=== PATIENT | female | born 1985 | race Caucasian/White ===

== ENCOUNTER → 2017-05-12 | Outpatient (CLI) | payer SELFPAY | END | disposition home or self-care (01) | LOC: LABWHC1 16:07 | PROVIDERS: ATTEND Internal Medicine | DX: E89.0 Postprocedural hypothyroidism (principal) | CPT/HCPCS: 36415; 84443 ==

== ENCOUNTER → 2017-07-22 | Outpatient (CLI) | payer OTHER ==
[2017-07-22 09:27] LABS: ALT 24 U/L (9-52); AST 15 U/L (14-36); Alkaline Phosphatase 45 U/L (38-126); Anion Gap 8 mmol/L; Blood Urea Nitrogen 14 mg/dL (7-17); Calcium 9.2 mg/dL (8.4-10.2); Carbon Dioxide 27 mmol/L (22-30); Chloride 106 mmol/L (98-107); Cholesterol 164 mg/dL (<200); Glucose 86 mg/dL (74-99); HDL Cholesterol 48 mg/dL (40-60); Non-African American GFR(MDRD) >60 (>60 ml/min/1.73 sqM); Potassium 4.2 mmol/L (3.5-5.1); Sodium 141 mmol/L (137-145); Total Bilirubin 0.3 mg/dL (0.2-1.3); Total Protein 6.5 g/dL (6.3-8.2)
== END | disposition home or self-care (01) ==
LOC: LABWHC1 08:41
PROVIDERS: ATTEND Pediatrics
DX: Z13.220 Encounter for screening for lipoid disorders (principal)
CPT/HCPCS: 36415; 80053; 80061

== ENCOUNTER → 2017-08-20 | Outpatient (CLI) | payer OTHER ==
[2017-08-20 09:49] LABS: Anion Gap 12 mmol/L; Blood Urea Nitrogen 7 mg/dL (7-17); Calcium 9.7 mg/dL (8.4-10.2); Carbon Dioxide 24 mmol/L (22-30); Chloride 105 mmol/L (98-107); Glucose 79 mg/dL (74-99); Non-African American GFR(MDRD) >60 (>60 ml/min/1.73 sqM); Potassium 4.3 mmol/L (3.5-5.1); Sodium 141 mmol/L (137-145)
== END | disposition home or self-care (01) ==
LOC: LABWHC1 07:38
PROVIDERS: ATTEND Internal Medicine
DX: E87.6 Hypokalemia (principal)
CPT/HCPCS: 36415; 80048

== ENCOUNTER → 2018-05-01 | Outpatient (CLI) | payer OTHER ==
--- NOTE | 2018-05-01 10:59 | CT ---
EXAMINATION TYPE: CT orbits w con DATE OF EXAM: 05/01/2018 COMPARISON: NONE HISTORY: 32-year-old female has with history of graves disease. Preoperative study. Unspecified acut e inflammation of the orbits. TECHNIQUE: Contiguous axial scanning of the orbits performed with IV Contrast, patient injected with 100 mL of Isovue 300. Coronal/sagittal reconstructions performed. 3-D reconstructions generated on a dedicated independent workstation. CT DLP: 303 mGycm Automated exposure control for dose reduction was used. FINDINGS: There is no abnormality of visualized intracranial structures. There is a old fracture of the medial left orbital wall measuring 2.2 cm AP and all blowout fracture of the left orbital floor measuring 9 mm wide and a bony gap along the lateral orbital wall, bilatera lly. There is some focal lateral pulling of the lateral rectus as it courses across the defect, refer to a xial image 28. On the left, the inferior rectus is thickened and extends along the orbital floor defect, refer to co siria image 25. The medial rectus is drawn into the medial blowout fracture defect and there is proba fabian some narrowing along the lateral aspect of the left orbit causing focal contour deformity to the lateral rectus, refer to axial image 25 and 26, respectively. Patient gaze is slightly divergent suggesting underlying strabismus. There is focal mucosal thickening along the lateral left maxillary sinus. No air-fluid levels. Slight leftward nasal septal deviation. Normal-appearing enhancement within the bilateral cavernous sinuses. IMPRESSION: 1. LEFT ORBITAL DEFORMITY. THE ORBIT APPEARS NARROWED FROM SIDE TO SIDE WITH THE MEDIAL RECTUS DRAWN INTO A DEFECT FORMED BY MEDIAL ORBITAL WALL BLOWOUT FRACTURE. ALSO, A PORTION OF THE SPHENOID BONE WH ICH FORMS THE LATERAL WALL IMPRESSES ON TO AND DEFORMS THE COURSE OF THE LATERAL RECTUS. THE INFERIOR RECTUS IS THICKENED AND DRAWN INTO THE DEFECT FORMED BY AN ORBITAL FLOOR BLOWOUT FRACTURE. ENTRAPMEN T NOT EXCLUDED. 2. RIGHT ORBITAL DEFORMITY WITH AN OSSEOUS DEFECT ALONG THE LATERAL WALL. THERE IS SOME PULLING OF TH E LATERAL RECTUS AT THE LEVEL OF THE DEFECT THAT COULD REPRESENT SCARRING AND ENTRAPMENT. 3. PATIENT'S GAZE IS SLIGHTLY DIVERGENT SUGGESTING UNDERLYING STRABISMUS. 4. MODERATE SOFT TISSUE THICKENING ALONG THE LEFT LATERAL MAXILLARY SINUS COULD REPRESENT SCARRING OR CHRONIC MUCOSAL THICKENING.
== END | disposition home or self-care (01) ==
LOC: RADCTMAIN 08:01
PROVIDERS: ATTEND Pathology Anatomic Pathology
DX: H05.30 Unspecified deformity of orbit (principal); S02.32XA Fracture of orbital floor, left side, initial encounter for closed fracture; M79.89 Other specified soft tissue disorders; E05.00 Thyrotoxicosis with diffuse goiter without thyrotoxic crisis or storm
CPT/HCPCS: 70481; Q9967

== ENCOUNTER 2024-08-07 12:40 | Emergency (ER) | payer OTHER ==
[2024-08-07 12:53] VITALS: TEMP 98.4
--- NOTE | 2024-08-07 13:40 | ED ---
General Adult HPI - General Source: patient, RN notes reviewed Mode of arrival: ambulatory Limitations: no limitations <Brenda Hammond - Last Filed: 08/07/24 13:38> <Mena Gutierrez - Last Filed: 08/07/24 16:56> - General Chief complaint: Recheck/Abnormal Lab/Rx Stated complaint: low blood pressure Time Seen by Provider: 08/07/24 13:30 - History of Present Illness Initial comments: Quick Note: This is a 39-year-old female who presents to the emergency department for weakness. Reports chills, body aches, nausea, and vomiting. States that in general she just feels sick and rundown. She went to urgent care and they were concerned about her being hypotensive and she was sent to the emergency department for evaluation. (Brenda Hammond) This is a 39-year-old female with past medical history of hypothyroidism on levothyroxine who presents emergency department for chief complaint of b odyaches, chills, nausea, vomiting, and diarrhea. States that she feels rundown and like she has COVID. States that symptoms started yesterday and she went to urgent care this morning where she tested negative for COVID and flu. She states that urgent care was concerned that her blood pressure was low and started to report to emergency department for further evaluation. Currently she is denying chest pain, shortness of breath, difficulty breathing, abdominal pain, headaches. States that since she has been here her symptoms are starting to improve. She is concerned that her thyroid levels may be off as she forgot to take her levothyroxine a few days last week. (Mena Gutierrez) - Related Data Home Medications Medication Instructions Recorded Confirmed Acetaminophen Tab [Tylenol Tab] 1,000 mg PO Q6HR PRN 08/07/24 08/07/24 Artificial Tears-Hypromellose 1 drop BOTH EYES QID PRN 08/07/24 08/07/24 [Artificial Tear Drops] Dextroamphetamine/Amphetamine 30 mg PO BID@0730,1100 08/07/24 08/07/24 [Adderall] Levothyroxine Sodium [Synthroid] 100 mcg PO DAILY 08/07/24 08/07/24 Allergies Allergy/AdvReac Type Severity Reaction Status Date / Time No Known Allergies Allergy Verified 08/07/24 16:09 Review of Systems ROS Other: All systems not noted in ROS Statement are negative. <Brenda Hammond - Last Filed: 08/07/24 13:38> ROS Other: All systems not noted in ROS Statement are negative. <Mena Gutierrez - Last Filed: 08/07/24 16:56> ROS Statement: Those systems with pertinent positive or pertinent negative responses have been documented in the HPI. Past Medical History Past Medical History: Thyroid Disorder History of Any Multi-Drug Resistant Organisms: None Reported Past Surgical History: Section Past Psychological History: ADD/ADHD Smoking Status: Current every day smoker Past Alcohol Use History: None Reported Past Drug Use History: None Reported <Brenda Hammond - Last Filed: 08/07/24 13:38> General Exam Limitations: no limitations <Brenda Hammond - Last Filed: 08/07/24 13:38> General appearance: alert, in no apparent distress Eye exam: Present: normal appearance, PERRL, EOMI. Absent: scleral icterus, conjunctival injection, periorbital swelling ENT exam: Present: normal exam, mucous membranes moist Neck exam: Present: normal inspection. Absent: tenderness, meningismus, lymphadenopathy Cardiovascular Exam: Present: regular rate, normal rhythm, normal heart sounds. Absent: systolic murmur, diastolic murmur, rubs, gallop, clicks GI/Abdominal exam: Present: soft, normal bowel sounds. Absent: distended, tend erness, guarding, rebound, rigid Extremities exam: Present: normal inspection, full ROM, normal capillary refill. Absent: tenderness, pedal edema, joint swelling, calf tenderness Back exam: Present: normal inspection Skin exam: Present: warm, dry, intact, normal color. Absent: rash <Mena Gutierrez - Last Filed: 08/07/24 16:56> - General Exam Comments Initial Comments: Visual Physical Exam Vital signs reviewed General: Well-appearing, nontoxic, no acute distress. Head: Normocephalic, atraumatic Eyes: PERRLA, EOMI ENT: Airway patent Chest: Nonlabored breathing Skin: No visual rash, normal skin tone Neuro: Alert and oriented 3 Musculoskeletal: No gross abnormalities (Brenda Hammond) Course Vital Signs 08/07/24 08/07/24 12:49 16:42 Temperature 98.4 F Pulse Rate 105 H 96 Respiratory 18 18 Rate Blood Pressure 131/84 131/96 O2 Sat by Pulse 99 98 Oximetry Medical Decision Making <Brenda Hammond - Last Filed: 08/07/24 13:38> - Lab Data Result diagrams: 08/07/24 14:24 08/07/24 14:24 <Mena Gutierrez - Last Filed: 08/07/24 16:56> - Medical Decision Making I performed the QuickNote portion of this chart. Signed Brenda Hammond PA-C. (Brenda Hammond) Was pt. sent in by a medical professional or institution (, PA, COMPRESSOR STATION OPERATOR, urgent care, hospital, or residential...) When possible be specific @ -Patient was advised by urgent care to report to the emergency department for further evaluation of of fevers, chills, hypotension. Did you speak to anyone other than the patient for history (EMS, parent, family, police, friend...)? What history was obtained from this source @ -No Did you review nursing and triage notes (agree or disagree)? Why? @ -I reviewed and agree with nursing and triage notes Were old charts reviewed (outside hosp., previous admission, EMS record, old EKG, old radiological studies, urgent care reports/EKG's, residential records)? Report findings @ -No old charts were reviewed Differential Diagnosis (chest pain, altered mental status, abdominal pain women, abdominal pain men, vaginal bleeding, weakness, fever, dyspnea, syncope, headache, dizziness, GI bleed, back pain, seizure, CVA, palpatations, mental health, musculoskeletal)? @ -COVID 19, RSV, influenza, pneumonia, acute bronchitis, URI, this list is not all inclusive EKG interpreted by me (3pts min.). @ -Not obtained X-rays interpreted by me (1pt min.). @ -None done CT interpreted by me (1pt min.). @ -None done U/S interpreted by me (1pt. min.). @ -None done What testing was considered but not performed or refused? (CT, X-rays, U/S, labs)? Why? @ -None What meds were considered but not given or refused? Why? @ -None Did you discuss the management of the patient with other professionals (professionals i.e. , PA, COMPRESSOR STATION OPERATOR, lab, RT, psych nurse, administrator social welfare, traffic recorder, teacher, fire prevention officer, watch case polisher)? Give summary @ -No Was smoking cessation discussed for >3mins.? @ -No Was critical care preformed (if so, how long)? @ -No Were there social determinants of health that impacted care today? How? (H omelessness, low income, unemployed, alcoholism, drug addiction, transportation, low edu. Level, literacy, decrease access to med. care, penitentiary, rehab)? @ -No Was there de-escalation of care discussed even if they declined (Discuss DNR or withdrawal of care, Hospice)? DNR status @ -No What co-morbidities impacted this encounter? (DM, HTN, Smoking, COPD, CAD, Cancer, CVA, ARF, Chemo, Hep., AIDS, mental health diagnosis, sleep apnea, morbid obesity)? @ -None Was patient admitted / discharged? Hospital course, mention meds given and route, prescriptions, significant lab abnormalities, going to OR and other pertinent info. @ -Discharge. 39-year-old female with nausea, vomiting, diarrhea, congestion. Patient was advised to report to emergency department from urgent care for further evaluation as she tested negative for COVID and flu. Patient was evaluated in the emergency department as a quick note. On my evaluation of the patient she is resting comfortably no signs of acute distress. Patient does have clinical signs of nasal congestion. Results are grossly unremarkable. Arlen ent's TSH is mildly elevated at 4.760, free T4 1.01. Patient states that she has been feeling much better since being the emergency department and request that she be discharged to this time. There are no acute findings on labs and testing and patient is stable for discharge at including that her vitals are stable and she has not had any episodes of hypotension will be in the emergency department. All questions answered at bedside strict return parameters devroa the patient she is verbalized understanding. Case discussed with Dr. Bernal Undiagnosed new problem with uncertain prognosis? @ -No Drug Therapy requiring intensive monitoring for toxicity (Heparin, Nitro, Insulin, Cardizem)? @ -No Were any procedures done? @ -No Diagnosis/symptom? @ -hypothyroidism, viral URI Acute, or Chronic, or Acute on Chronic? @ -Acute Uncomplicated (without systemic symptoms) or Complicated (systemic symptoms)? @ -uncomplicated Side effects of treatment? @ -No Exacerbation, Progression, or Severe Exacerbation? @ -No Poses a threat to life or bodily function? How? (Chest pain, [place], [place], pneumonia, PE, COPD, DKA, ARF, appy, cholecystitis, CVA, Diverticulitis, Homicidal, Suicidal, threat to staff... and all critical care pts) @ -No (Mena Gutierrez) - Lab Data Lab Results 08/07/24 08/07/24 08/07/24 Range/Units 13:15 14:24 14:24 WBC 7.3 (3.8-10.6) k/uL RBC 4.76 (3.80-5.40) m/uL Hgb 14.6 (11.4-16.0) gm/dL Hct 43.4 (34.0-46.0) % MCV 91.1 (80.0-100.0) fL MCH 30.7 (25.0-35.0) pg MCHC 33.8 (31.0-37.0) g/dL RDW 12.5 (11.5-15.5) % Plt Count 322 (150-450) k/uL MPV 6.9 Neutrophils % 67 % Lymphocytes % 24 % Monocytes % 6 % Eosinophils % 0 % Basophils % 1 % Neutrophils # 4.9 (1.3-7.7) k/uL Lymphocytes # 1.7 (1.0-4.8) k/uL Monocytes # 0.4 (0-1.0) k/uL Eosinophils # 0.0 (0-0.7) k/uL Basophils # 0.1 (0-0.2) k/uL Sodium 139 (137-145) mmol/L Potassium 4.3 (3.5-5.1) mmol/L Chloride 106 (98-107) mmol/L Carbon Dioxide 27 (22-30) mmol/L Anion Gap 6 mmol/L BUN 16 (7-17) mg/dL Creatinine 0.87 (0.52-1.04) mg/dL Est GFR (CKD-EPI)AfAm >90 (>60 ml/min/1.73 sqM) Est GFR (CKD-EPI)NonAf 83 (>60 ml/min/1.73 sqM) Glucose 105 H (74-99) mg/dL Calcium 9.9 (8.4-10.2) mg/dL Total Bilirubin 0.6 (0.2-1.3) mg/dL AST 23 (14-36) U/L ALT 19 (4-34) U/L Alkaline Phosphatase 48 (38-126) U/L Total Protein 7.0 (6.3-8.2) g/dL Albumin 4.5 (3.5-5.0) g/dL Lipase 60 (23-300) U/L TSH 4.760 H (0.465-4.680) mIU/L Free T4 1.01 (0.78-2.19) ng/dL Influenza Type A (PCR) Not Detected (Not Detectd) Influenza Type B (PCR) Not Detected (Not Detectd) RSV (PCR) Not Detected (Not Detectd) SARS-CoV-2 (PCR) Not Detected (Not Detectd) Disposition <Brenda Hammond - Last Filed: 08/07/24 13:38> Is patient prescribed a controlled substance at d/c from ED?: No Time of Disposition: 16:52 <Mena Gutierrez - Last Filed: 08/07/24 16:56> Clinical Impression: Hypothyroidism, Viral URI Disposition: HOME SELF-CARE Condition: Good Instructions (If sedation given, give patient instructions): Hypothyroidism (ED) Additional Instructions: Please return to the Emergency Department if symptoms worsen or any other concerns. Continue to take your levothyroxine as prescribed. Referrals: Cristopher Garcia MD [Primary Care Provider] - 1-2 days
[2024-08-07 15:05] LABS: Basophils # (A) 0.1 k/uL (0-0.2); Basophils % (A) 1 %; Eosinophils % (A) 0 %; HCT 43.4 % (34.0-46.0); HGB 14.6 gm/dL (11.4-16.0); Lymphocytes # (A) 1.7 k/uL (1.0-4.8); Lymphocytes % (A) 24 %; MCH 30.7 pg (25.0-35.0); MCHC 33.8 g/dL (31.0-37.0); MCV 91.1 fL (80.0-100.0); Mean Platelet Volume 6.9; Monocytes # (A) 0.4 k/uL (0-1.0); Monocytes % (A) 6 %; Neutrophils # (A) 4.9 k/uL (1.3-7.7); Neutrophils % (A) 67 %; Platelet Count 322 k/uL (150-450); RBC 4.76 m/uL (3.80-5.40); RDW 12.5 % (11.5-15.5); WBC 7.3 k/uL (3.8-10.6)
[2024-08-07 15:20] LABS: ALT 19 U/L (4-34); AST 23 U/L (14-36); African American GFR (CKD) >90 (>60 ml/min/1.73 sqM); Albumin 4.5 g/dL (3.5-5.0); Alkaline Phosphatase 48 U/L (38-126); Anion Gap 6 mmol/L; Blood Urea Nitrogen 16 mg/dL (7-17); Calcium 9.9 mg/dL (8.4-10.2); Carbon Dioxide 27 mmol/L (22-30); Chloride 106 mmol/L (98-107); Glucose 105 mg/dL (74-99); Lipase 60 U/L (23-300); Non-African American GFR(CKD) 83 (>60 ml/min/1.73 sqM); Potassium 4.3 mmol/L (3.5-5.1); Sodium 139 mmol/L (137-145); Total Bilirubin 0.6 mg/dL (0.2-1.3)
[2024-08-07 16:42] VITALS: BP 131/96; PULSE 96
[2024-08-07 16:46] LABS: T4, Free (Free Thyroxine) 1.01 ng/dL (0.78-2.19)
[2024-08-07 17:01] VITALS: RESP 16
== END 2024-08-07 17:04 | disposition home or self-care (01) ==
LOC: EC 12:40
DX: R03.1 Nonspecific low blood-pressure reading
CPT/HCPCS: 36415; 80053; 83690; 84439; 84443; 85025; 87636; 99283